=== PATIENT | female | born 1975 | race Asian ===

== ENCOUNTER 2016-09-16 08:38 | Day surgery (SDC) | payer OTHER ==
[~2016-09-16] VITALS: Ht 160 cm; Wt 95.4 kg
[~2016-09-16 08:38] MED LIST: AMLO5TAB2 PO; ASPI-496 PO; BIOT5TAB PO; METO25TA35 PO
[2016-09-16] MEDS ORDERED: SODIUM CHLORIDE 0.9% 1,000 ML IV SCH (09:25)
[2016-09-16] MEDS ORDERED: ASPIRIN 325 MG TABLET EC PO ONE (09:30)
[2016-09-16] MEDS ORDERED: BISACODYL 10 MG SUPP PR PRN (09:30)
[2016-09-16] MEDS ORDERED: ONDANSETRON 2MG/ML, 2ML IVPush PRN (09:30)
[2016-09-16] MEDS ORDERED: BISACODYL 5 MG EC TABLET PO PRN (09:30)
[2016-09-16] MEDS ORDERED: ZOLPIDEM 5MG TABLET PO PRN (09:30)
[2016-09-16] MEDS ORDERED: ACETAMINOPHEN 325 MG TABLET PO PRN (09:30)
[2016-09-16] MEDS ORDERED: MIDAZOLAM 1 MG/ML, 5ML ONE (10:58)
[2016-09-16] MEDS ORDERED: NITROGLYCERIN 5 MG/ML, 10ML ONE (10:58)
[2016-09-16] MEDS ORDERED: FENTANYL PF 100 MCG/2ML ONE (10:58)
[2016-09-16] MEDS ORDERED: TICAGRELOR 90 MG TABLET ONE (10:59)
[2016-09-16] MEDS ORDERED: BIVALIRUDIN 250 MG ONE (10:59)
[2016-09-16] MEDS ORDERED: LIDOCAINE 2%, 20ML ONE (10:59)
[2016-09-16] MEDS ORDERED: HEPARIN 1,000 UNITS/ML, 10ML ONE (10:59)
[2016-09-16] MEDS ORDERED: VERAPAMIL 2.5 MG/ML, 2ML ONE (10:59)
== END 2016-09-16 16:34 | disposition home or self-care (01) ==
LOC: CACL 08:38
PROVIDERS: ATTEND Internal Medicine Cardiovascular Disease
DX: R94.39 Abnormal result of other cardiovascular function study (principal); I10 Essential (primary) hypertension; E66.9 Obesity, unspecified; Z68.37 Body mass index [BMI] 37.0-37.9, adult; E78.5 Hyperlipidemia, unspecified; Z82.49 Family history of ischemic heart disease and other diseases of the circulatory system; E78.00 Pure hypercholesterolemia, unspecified; Z87.891 Personal history of nicotine dependence
CPT/HCPCS: 93458; C1894; J2250; J3010; J3490; Q9967; J0583; J1644

== ENCOUNTER 2016-09-30 05:34 | Day surgery (SDC) | payer OTHER ==
[~2016-09-30] VITALS: Ht 160 cm; Wt 95.0 kg
[2016-09-30] MEDS ORDERED: LACTATED RINGERS 1,000 ML IV SCH (06:22)
[2016-09-30 06:23] VITALS: BP 116/68
[2016-09-30] MEDS ORDERED: LIDOCAINE 1%, 2ML SQ PRN (06:30)
[2016-09-30] MEDS ORDERED: VASOPRESSIN 20 UNIT/ML, 1ML ONE (07:12)
[2016-09-30] MEDS ORDERED: FENTANYL PF 250 MCG/5ML ONE (07:20)
[2016-09-30] MEDS ORDERED: MIDAZOLAM 1 MG/ML, 2ML ONE (07:20)
[2016-09-30] MEDS ORDERED: SILVER NITRATE STICK TP ONE (07:24)
[2016-09-30] MEDS ORDERED: CEFAZOLIN 1,000 MG ONE (07:34)
[2016-09-30] MEDS ORDERED: PROPOFOL 10 MG/ML, 20ML ONE (07:34)
[2016-09-30] MEDS ORDERED: DEXAMETHASONE 4 MG/ML, 1ML ONE (07:34)
[2016-09-30] MEDS ORDERED: ONDANSETRON 2MG/ML, 2ML ONE (07:34)
[2016-09-30] MEDS ORDERED: KETOROLAC 30 MG/1 ML ONE (07:34)
[2016-09-30 07:54] LABS: HCG UR OBC PASS
[2016-09-30] MEDS ORDERED: ACETAMINOPHEN 325 MG TABLET PO PRN (08:00)
[2016-09-30] MEDS ORDERED: HYDROmorphone 1 MG/ML, 1ML IV PRN (08:00)
[2016-09-30] MEDS ORDERED: MIDAZOLAM 1 MG/ML, 2ML IV PRN (08:00)
[2016-09-30] MEDS ORDERED: MEPERIDINE/PF 25MG/0.5ML IVPush PRN (08:00)
[2016-09-30] MEDS ORDERED: EPHEDRINE 50 MG/ML, 1ML IVPush PRN (08:00)
[2016-09-30] MEDS ORDERED: ONDANSETRON 2MG/ML, 2ML IVPush PRN (08:00)
[2016-09-30] MEDS ORDERED: FENTANYL PF 100 MCG/2ML IV PRN (08:00)
[2016-09-30] MEDS ORDERED: OXYcodone 5 MG/5 ML ORAL.SOL UDC PO PRN (08:00)
[2016-09-30] MEDS ORDERED: OXYcodone 5 MG/5 ML ORAL.SOL UDC ONE (08:45)
[2016-09-30] MEDS ORDERED: ACETAMINOPHEN 325 MG TABLET ONE (08:45)
== END 2016-09-30 12:30 | disposition home or self-care (01) ==
LOC: OUT 05:34
PROVIDERS: ATTEND Obstetrics & Gynecology
DX: N92.0 Excessive and frequent menstruation with regular cycle (principal); N85.02 Endometrial intraepithelial neoplasia [EIN]; E66.9 Obesity, unspecified; Z68.37 Body mass index [BMI] 37.0-37.9, adult; Z98.51 Tubal ligation status; Z90.49 Acquired absence of other specified parts of digestive tract; Z87.442 Personal history of urinary calculi; Z83.3 Family history of diabetes mellitus; Z82.49 Family history of ischemic heart disease and other diseases of the circulatory system; Z82.3 Family history of stroke; Z72.89 Other problems related to lifestyle; Z87.891 Personal history of nicotine dependence
CPT/HCPCS: 58563; 81025; 88305; 93005; J0690; J1100; J1885; J2250; J2405; J2704; J3010

== ENCOUNTER → 2016-11-29 | Outpatient (CLI) | payer OTHER ==
[~2016-11-29] MED LIST changes: +FAMO-79 PO; +VITA400C40 PO
== END | disposition home or self-care (01) ==
LOC: STAR 10:36
PROVIDERS: ATTEND Obstetrics & Gynecology
DX: Z01.818 Encounter for other preprocedural examination (principal); N85.02 Endometrial intraepithelial neoplasia [EIN]
CPT/HCPCS: 36415; 81003; 84703; 85025

== ENCOUNTER 2016-12-14 05:16 | Day surgery (SDC) | payer OTHER ==
[~2016-12-14] VITALS: Ht 160 cm; Wt 94.0 kg
[~2016-12-14 05:16] MED LIST changes: -VITA400C40 PO; +VITA400C43 PO
[2016-12-14] MEDS ORDERED: LACTATED RINGERS 1,000 ML IV SCH (06:17)
[2016-12-14 06:18] VITALS: BP 118/80
[2016-12-14] MEDS ORDERED: LIDOCAINE 1%, 2ML SQ PRN (06:30)
[2016-12-14 06:37] LABS: HCG UR OBC PASS
[2016-12-14] MEDS ORDERED: EPINEPHRINE 1 MG/ML, 1ML ONE (06:55)
[2016-12-14] MEDS ORDERED: FLUORESCEIN SODIUM 500 MG/5 ML ONE (06:55)
[2016-12-14] MEDS ORDERED: BUPIVACAINE/PF 0.25% ONE (06:56)
[2016-12-14] MEDS ORDERED: FENTANYL PF 250 MCG/5ML ONE (07:16)
[2016-12-14] MEDS ORDERED: MIDAZOLAM 1 MG/ML, 2ML ONE ×2 (07:17)
[2016-12-14] MEDS ORDERED: GLYCOPYRROLATE 0.2MG/1ML ONE (07:35)
[2016-12-14] MEDS ORDERED: CEFAZOLIN 1,000 MG ONE (07:35)
[2016-12-14] MEDS ORDERED: ONDANSETRON 2MG/ML, 2ML ONE (07:35)
[2016-12-14] MEDS ORDERED: PROPOFOL 10 MG/ML, 20ML ONE (07:35)
[2016-12-14] MEDS ORDERED: ROCURONIUM 10 MG/ML ONE (07:35)
[2016-12-14] MEDS ORDERED: NEOSTIGMINE 1 MG/ML, 10ML ONE (07:35)
[2016-12-14] MEDS ORDERED: DEXAMETHASONE 4 MG/ML, 1ML ONE (07:35)
[2016-12-14] MEDS ORDERED: MEPERIDINE/PF 25MG/0.5ML IVPush PRN (08:00)
[2016-12-14] MEDS ORDERED: HYDROmorphone 1 MG/ML, 1ML IV PRN (08:00)
[2016-12-14] MEDS ORDERED: PROMETHAZINE 25 MG/ML, 1ML IV PRN (08:00)
[2016-12-14] MEDS ORDERED: ACETAMINOPHEN 325 MG TABLET PO PRN (08:00)
[2016-12-14] MEDS ORDERED: FENTANYL PF 100 MCG/2ML IV PRN (08:00)
[2016-12-14] MEDS ORDERED: ONDANSETRON 2MG/ML, 2ML IVPush PRN (08:00)
[2016-12-14] MEDS ORDERED: METOCLOPRAMIDE 5 MG/ML, 2ML IV PRN (08:00)
[2016-12-14] MEDS ORDERED: OXYcodone 5 MG/5 ML ORAL.SOL UDC PO PRN (08:00)
[2016-12-14] MEDS ORDERED: ACETAMINOPHEN 325 MG/10.15 ML UDC ONE (10:01)
[2016-12-14] MEDS ORDERED: ACETAMINOPHEN 650 MG/20.3 ML UDC ONE (10:01)
[2016-12-14] MEDS ORDERED: FENTANYL PF 100 MCG/2ML ONE (10:02)
[2016-12-14] MEDS ORDERED: OXYcodone 5 MG/5 ML ORAL.SOL UDC ONE (10:02)
[2016-12-14] MEDS ORDERED: KETOROLAC 30 MG/1 ML ONE (10:56)
[2016-12-14] MEDS ORDERED: KETOROLAC 30 MG/1 ML IVPush SCH (11:00)
[2016-12-14] MEDS ORDERED: OXYcodone/APAP 5/325MG TABLET ONE (14:27)
[2016-12-14] MEDS ORDERED: OXYcodone/APAP 5/325MG TABLET PO PRN (14:30)
[2016-12-14] MEDS ORDERED: ONDANSETRON ODT 4 MG ONE (17:06)
[2016-12-14] MEDS ORDERED: ONDANSETRON ODT 4 MG PO ONE (17:30)
== END 2016-12-14 17:15 ==
LOC: OUT 05:16
PROVIDERS: ATTEND Obstetrics & Gynecology
DX: N85.01 Benign endometrial hyperplasia (principal); N85.8 Other specified noninflammatory disorders of uterus; I10 Essential (primary) hypertension; Z79.82 Long term (current) use of aspirin
CPT/HCPCS: 58552; 81025; 88307; J0171; J0690; J1100; J1885; J2250; J2405; J2704; J2710; J3010; J3490; J7120; Q0162

== ENCOUNTER → 2020-05-13 | Outpatient (CLI) | payer OTHER ==
[~2020-05-13] MED LIST changes: +AMLO-150 PO; -AMLO5TAB2 PO
== END | disposition home or self-care (01) ==
LOC: CVU 08:30
PROVIDERS: ATTEND Internal Medicine Cardiovascular Disease
DX: I10 Essential (primary) hypertension (principal); R07.9 Chest pain, unspecified
CPT/HCPCS: 93306; 93356